=== PATIENT | male | born 1965 | race Caucasian/White ===

== ENCOUNTER 2019-10-20 16:53 | Emergency (ER) | payer OTHER ==
[~2019-10-20] VITALS: Ht 172.7 cm; Wt 77.1 kg
[2019-10-20 17:54] LABS: Basophils # (auto) 0 uL; Basophils % (auto) 0.6 % (0.0-2.0); Eosinophils # (auto) 0 uL; Eosinophils % (auto) 0.3 % (0.0-7.0); Hematocrit 40.4 % (41.0-53.0); Hemoglobin 13.5 g/dL (13.5-17.5); Lymphocytes # (auto) 0.4 uL; Lymphocytes % (auto) 15.5 % (10.0-50.0); Mean Corpuscular Hemoglobin 28.7 pg (28.0-32.0); Mean Corpuscular Hgb Conc. 33.5 g/dL (32.0-36.0); Mean Corpuscular Volume 85.5 fL (80.0-100.0); Monocytes # (auto) 0.3 uL; Monocytes % (auto) 10.5 % (0.0-12.0); Neutrophils # (auto) 1.8 uL; Neutrophils % (auto) 73.1 % (37.0-80.0); Nucleated Red Blood Cells % 0.2 %; Platelet Count (auto) 95 10^3/uL (140-450); Red Blood Cells 4.72 10^6/uL (4.5-5.90); Red Cell Distribution Width 13.1 % (11.8-14.3); White Blood Cell 2.5 10^3/uL (4.4-10.8)
[2019-10-20 18:07] LABS: INR 1.18 (0.9-1.15)
[2019-10-20 18:12] LABS: Albumin 3.5 g/dL (3.4-5.0); Anion Gap 7 (5-15); Blood Urea Nitrogen 14 mg/dL (7-18); Calcium 8.3 mg/dL (8.5-10.1); Carbon Dioxide 27 mmol/L (21-32); Chloride 101 mmol/L (98-107); Glucose 88 mg/dL (74-106); Potassium 3.4 mmol/L (3.5-5.1); Sodium 135 mmol/L (136-145)
[2019-10-20 18:17] LABS: Alanine Aminotransferase 37 U/L (16-61); Alkaline Phosphatase 97 U/L (45-117); Aspartate Aminotransferase 38 U/L (15-37); BUN/Creatinine Ratio 14.7; Bilirubin, Total 0.5 mg/dL (0.2-1.0); GFR African American 107 mL/min; GFR Non-African American 88 mL/min; Total Protein 7.5 g/dL (6.4-8.2)
[2019-10-20 20:27] VITALS: BP 109/61
[2019-10-20] MEDS ORDERED: guaiFENesin-DM 100/10mg/5ml SYR PO ONE (20:30)
[2019-10-20] MEDS ORDERED: cefTRIAXone SOD 1,000 MG VL IM ONE (20:30)
[2019-10-20] MEDS ORDERED: IPRATROPIUM BROM 0.5 MG/2.5ML INH SOL NEB ONE (20:30)
[2019-10-20] MEDS ORDERED: ALBUTEROL SULF 2.5 MG/0.5ML(0.5%) NEB SOLN NEB ONE (20:30)
== END 2019-10-20 21:16 | disposition home or self-care (01) ==
LOC: ER 16:53
DX: J06.9 Acute upper respiratory infection, unspecified (principal); R51 Headache; F17.210 Nicotine dependence, cigarettes, uncomplicated; Z90.49 Acquired absence of other specified parts of digestive tract
CPT/HCPCS: 36415; 71046; 80053; 83605; 84484; 85025; 85610; 85730; 87040; 93005; 94640; 96372; 99285; J0696; J7611; J7644